=== PATIENT | female | born 1995 | race Caucasian/White ===

== ENCOUNTER 2019-07-21 10:13 | Emergency (ER) | payer MEDICAID ==
[~2019-07-21] VITALS: Ht 162.6 cm; Wt 47.7 kg
[2019-07-21 10:22] VITALS: BP 106/65; TEMP 98.4
[2019-07-21 12:21] VITALS: PULSE 69
== END 2019-07-21 12:22 | disposition home or self-care (01) ==
LOC: COL.ER 10:13
DX: J06.9 Acute upper respiratory infection, unspecified (principal)